=== PATIENT | female | born 1960 | race Caucasian/White ===

== ENCOUNTER → 2023-11-10 08:15 | Outpatient (REF) | payer OTHER, SELFPAY | LOC: HWRAD 08:15 | PROVIDERS: ATTENDING PHYSICIAN Colon & Rectal Surgery; FAMILY PHYSICIAN Family Medicine | DX: K57.20 Diverticulitis of large intestine with perforation and abscess without bleeding (principal); K57.30 Diverticulosis of large intestine without perforation or abscess without bleeding; I10 Essential (primary) hypertension | CPT/HCPCS: 74177; Q9967 ==

== ENCOUNTER → 2024-02-02 13:43 | Outpatient (REF) | payer OTHER, SELFPAY | LOC: HWRAD 13:43 | PROVIDERS: ATTENDING PHYSICIAN Nurse Practitioner; FAMILY PHYSICIAN Family Medicine | DX: M85.80 Other specified disorders of bone density and structure, unspecified site (principal) | CPT/HCPCS: 77080 ==